=== PATIENT | female | born 1985 | race Caucasian/White ===

== ENCOUNTER 2017-01-27 11:28 | Emergency (ER) | payer BC ==
[~2017-01-27] VITALS: Ht 162.6 cm; Wt 63.5 kg
[2017-01-27 12:36] VITALS: BP 120/74
== END 2017-01-27 12:36 | disposition home or self-care (01) ==
LOC: ED 11:28
DX: S93.601A Unspecified sprain of right foot, initial encounter (principal); W10.8XXA Fall (on) (from) other stairs and steps, initial encounter; Y93.89 Activity, other specified; Y92.89 Other specified places as the place of occurrence of the external cause; Y99.8 Other external cause status